=== PATIENT | female | born 1980 | race African-American/Black ===

== ENCOUNTER 2017-06-02 21:21 | Emergency (ER) | payer MEDICAID ==
[~2017-06-02] VITALS: Ht 167.6 cm; Wt 72.0 kg
[~2017-06-02 21:21] MED LIST: Docusate Sodium PO; LISI40TA4 PO; NEPVIT PO; Nifedipine PO; REN800 PO; Sertraline Hcl PO
[2017-06-03 01:25] LABS: BASOPHILS % 1.7 % (0.0-2.0); EOSINOPHILS % 4.7 % (0.0-5.0); HEMATOCRIT. 28.8 % (36.0-48.0); HEMOGLOBIN. 8.9 g/dL (12.0-16.0); LYMPHOCYTES % 8.9 % (20.0-50.0); MEAN CORPUSCULAR HEMOGLOBIN 26.8 pg (28.0-32.0); MEAN CORPUSCULAR VOLUME 86.4 fL (81.0-99.0); MEAN PLATELET VOLUME 7.3 fl (7.4-10.4); MONOCYTES % 7.9 % (2.0-8.0); NEUTROPHILS % 76.8 % (40.0-76.0); PLATELET 539 x1000/uL (130-400); RED BLOOD CELL COUNT 3.33 mill/uL (4.2-5.4); RED CELL DISTRIBUTION WIDTH 18.8 % (11.6-14.6)
[2017-06-03 01:31] LABS: CHLORIDE 92 mEq/L (98-107)
[2017-06-03 01:32] LABS: INR 1.7
[2017-06-03 01:37] LABS: HCG SCREEN NEGATIVE
[2017-06-03 01:39] LABS: CARBON DIOXIDE 25 mEq/L (21-32)
[2017-06-03] MEDS: INSULIN REGULAR (HUMULIN R) 300UNITS/3ML IV ONE (03:07)
[2017-06-03] MEDS: ACETAMINOPHEN WITH CODEINE 300/30MG TABLET PO SCH (03:34)
[2017-06-03] MEDS: CLONIDINE 0.1MG TABLET PO ONE (06:23)
[2017-06-03] MEDS: ACETAMINOPHEN WITH CODEINE 300/30MG TABLET PO ONE (07:59)
[2017-06-03 08:51] VITALS: BP 133/71
== END 2017-06-03 08:52 | disposition home or self-care (01) ==
LOC: ER 21:39
DX: E11.65 Type 2 diabetes mellitus with hyperglycemia (principal); I12.0 Hypertensive chronic kidney disease with stage 5 chronic kidney disease or end stage renal disease; I16.0 Hypertensive urgency; E11.22 Type 2 diabetes mellitus with diabetic chronic kidney disease; N18.6 End stage renal disease; Z86.73 Personal history of transient ischemic attack (TIA), and cerebral infarction without residual deficits; Z99.2 Dependence on renal dialysis
CPT/HCPCS: 36415; 71010; 80053; 82962; 84703; 85025; 85610; 96374; 99285; J1815